=== PATIENT | female | born 1975 | race African-American/Black ===

== ENCOUNTER 2018-01-28 17:15 | Emergency (ER) | payer MEDICAID, SELFPAY ==
[2018-01-28 17:18] VITALS: BP 136/98; PULSE 90; RESP 12; TEMP 36.8; O2SAT 99; BMI 47.2
--- NOTE | 2018-01-28 18:08 | CT_ITS ---
STUDY: CT CERVICAL SPINE WITHOUT CONTRAST REASON FOR EXAM: Female, 42 years old. Laceration to head. Status post fall. RADIATION DOSAGE (If Supplied By Facility): CTDIvol = ( 32.98 ) mGy, DLP = ( 739.19 ) mGycm TECHNIQUE: High resolution transaxial imaging was performed without contrast material. Sagittal and coronal images were reconstructed. Individualized dose optimization techniques were used for this CT. COMPARISON: None FINDINGS: Motion artifact slightly degrades anatomic detail. Normal craniovertebral junction. There are degenerative changes of the anterior atlantoaxial articulation. Normal odontoid process. There is loss of the normal cervical lordosis. The vertebral body heights are preserved. There is facet hypertrophy. C2-3: Normal endplates. Normal disc height and morphology. Normal central canal and intervertebral neuroforamina. C3-4: There is spondylosis. Normal central canal and intervertebral neuroforamina. C4-5: Normal endplates. Normal disc height and morphology. Normal central canal and intervertebral neuroforamina. C5-6: There is spondylosis. Normal central canal and intervertebral neuroforamina. C6-7: There is spondylosis. Normal central canal and intervertebral neuroforamina. C7-T1: Normal endplates. Normal disc height and morphology. Normal central canal and intervertebral neuroforamina. Normal visualized soft tissue structures. CT/Spine Cervical without Contras IMPRESSION: Multilevel degenerative changes, as described above. Electronically Signed: Arpita Harden MD at 19:20 EDT Tel , Service support ,
--- NOTE | 2018-01-28 18:08 | CT_ITS ---
STUDY: CT BRAIN WITHOUT CONTRAST REASON FOR EXAM: Female, 42 years old. Head laceration. RADIATION DOSAGE (If Supplied By Facility): CTDIvol = ( 44.99 ) mGy, DLP = ( 796.11 ) mGycm TECHNIQUE: Transaxial CT imaging of the brain was performed without administration of intravenous contrast material. Individualized dose optimization techniques were used for this CT. COMPARISON: None. FINDINGS: Normal soft tissue structures. Normal calvarium. Normal size ventricles and extra-axial spaces for the patient's age. Normal white matter tracts of the cerebral hemispheres. Normal basal ganglia and thalami. Normal brainstem. Normal cerebellum. There is no intracranial hemorrhage. There are no findings of an acute ischemic infarction. There is near complete opacification of the right maxillary sinus. There is minimal opacification of the left maxillary sinus. CT/Brain/Head without Contrast IMPRESSION: No acute intracranial process. Opacification of the maxillary sinuses consistent with a history of sinusitis. Electronically Signed: Arpita Harden MD at 19:15 EDT Tel , Service support ,
--- NOTE | 2018-01-28 18:08 | EKG12_ITS ---
Test Reason : Blood Pressure : / mmHG Vent. Rate : 090 BPM Atrial Rate : 090 BPM P-R Int : 182 ms QRS Dur : 090 ms QT Int : 360 ms P-R-T Axes : 076 099 058 degrees QTc Int : 440 ms Normal sinus rhythm Nonspecific T wave abnormality Abnormal ECG Confirmed by JYOTHI AMEZQUITA, BRIDGETTE ([id number]), publications editor CHRISTIAN NAIR ([id number] on 02/06/2018 2:58:44 PM Referred By: LUKAS Confirmed By:BRIDGETTE ROE MD
--- NOTE | 2018-01-28 18:08 | RAD_ITS ---
STUDY: X-RAY CHEST REASON FOR EXAM: Female, 42 years old. Fall TECHNIQUE: AP COMPARISON: None. FINDINGS: The lungs are clear and expanded. There is no demonstrated pleural abnormality. Normal size heart. Normal mediastinum and edu. Normal visualized pulmonary arteries. Normal visualized aortic arch and descending thoracic aorta. Normal visualized thoracic spine. Normal visualized ribs, clavicles, and shoulders. There is no demonstrated abnormality of the visualized soft tissue structures of the upper abdomen. RAD/Chest 1 View (Portable) IMPRESSION: No acute cardiopulmonary process. Electronically Signed: Arpita Harden MD at 19:21 EDT Tel , Service support ,
[2018-01-28 18:32] LABS: Absolute Lymphocyte Count 1.98 X10^3/ul (0.83-4.51); Absolute Neutrophil Count 5.1 X10^3/uL (2.0-7.7); Basophil# 0.02 X10^3/uL; Basophil% 0.3 % (0-1); Eosinophil# 0.08 X10^3/uL; Eosinophils% 1.1 % (0-5); Hematocrit 39.5 % (37-47); Lymphocyte # 1.98 X10^3/ul (4.0); Lymphocyte % 26.2 % (19-41); Mean Corp Hgb Conc 32.9 g/gl (32-36); Mean Corpuscular Hgb 28.1 pg (27.0-32.0); Mean Corpuscular Volume 85.5 fL (81-99); Mean Platelet Vol. 9.9 fl (6.2-12.0); Monocyte# 0.39 X10^3/uL; Monocyte% 5.2 % (0-10); Neutrophil # 5.07 X10^3/uL (2.7-7.7); Neutrophil % 66.8 % (47-70); Platelet Count 294 K/mm3 (150-450); RBC Distribution Width CV 17.9 % (11.6-14.6); RBC Distribution Width SD 54.9 fl (35.1-43.9); Red Blood Count 4.62 M/mm3 (4.2-5.4); White Blood Count 7.6 K/mm3 (4.4-11.0)
[2018-01-28 18:35] LABS: POSITIVE COUNT NO; POSITIVE DIFFERENTIAL NO; POSITIVE MORPHOLOGY NO
[2018-01-28 18:51] LABS: Anion Gap 6 (5-15); BUN 10 mg/dL (7-18); BUN/Creat Ratio 9.6 RATIO (10-20); Calcium,Total 8.4 mg/dL (8.5-10.1); Chloride 107 mmol/L (98-107); Creatinine, Serum 1.04 mg/dL (0.55-1.02); EST Glomerular Filtration Rate 61 mL/min (>60); Est Glom Filt Rate - Afr Amer 74 mL/min (>60); Estimated Creatinine Clearance 65.29 ml/min; Glucose 87 mg/dL (74-106); Potassium 3.9 mmol/L (3.5-5.1); Sodium Level 141 mmol/L (136-145)
[2018-01-28] MEDS: Diphth,Pertuss(Acell),Tet Vac 0.5 ML Vial IM (19:08)
[2018-01-28 19:21] LABS: International Normalized Ratio 0.9; Prothrombin Time (Protime)PT. 12.5 SECONDS (11.7-14.9)
[2018-01-28 19:23] VITALS: BP 159/110; PULSE 91; RESP 12; O2SAT 98
[2018-01-28 21:06] VITALS: PULSE 99; RESP 16
--- NOTE | 2018-01-28 21:53 | ED.VISSUMM ---
- ER Visit Summary Date of Service: 01/28/18 Chief Complaint: Fall History of Present Illness: The patient is a 42 F who presents after a fall. She does admit to alcohol intoxication today and drank a large amount of vodka. She does not remember the injury but remembers being told that she had cut her head and that she was bleeding. The other individual with her wanted to take her to the hospital but she refused. Once she got back home her daughter called the police and she was brought here after she was told she really did need an evaluation. She also sustained some abrasions to her left knee but no other injuries. Currently she complains of a headache only. Physical Examination: Afebrile vitals are normal There is a 2 cm laceration above the left eyebrow as well as soft tissue swelling Pupils are equally round reactive to light extraocular motion intact without pain or palsy No midface instability or jaw malocclusion No cervical tenderness Active full range of motion ?4 extremities she has an abrasion over the anterior left knee but no pain on palpation or effusion or deformity Heart regular rate and rhythm Lungs are clear Abdomen soft Test Results: EKG shows sinus rhythm at a rate of 90. Laboratory studies notable for EtOH of 149. Troponin negative. CT the head shows no acute process. CT of the cervical spine shows degenerative changes only. Chest x-ray shows no acute process. Emergency Department Course and Treatment: Tetanus immunization was updated and patient was anesthetized with 5 cc of local lidocaine. A small area of devitalized macerated tissue was debrided. The laceration was cleansed with sterile saline. Laceration was closed with a total of 5 simple interrupted 50 nonabsorbable sutures. Patient has been observed in the emergency department for almost 5 hours. Note that her alcohol level was drawn late in her stay and was a redrawn due to hemolyzed specimen. Currently she is answering all questions appropriately. She is asking if she can be discharged and has called her daughter for a ride home. Treatment Plan: [] Disposition: Discharge Impression: Closed head injury Facial laceration Alcohol intoxication This note was generated with [employer] dictation software. It may contain incorrect words, spelling, and punctuation that were not noted in review of the chart prior to signing ED Disposition - Plan for ED Patient: Chief Complaint: Fall Referrals: Care Physician,No Primary [Primary Care Provider] -
--- NOTE | 2018-01-28 21:56 | ED.DEP ---
ED Disposition - Plan for ED Patient: Chief Complaint: Fall Instructions: ED Laceration Facial Sutr Tape, ED Alcohol Intoxication Referrals: Care Physician,No Primary [Primary Care Provider] -
[2018-01-28 21:59] VITALS: BP 162/110; PULSE 92; RESP 20; O2SAT 96
[2018-01-28] MEDS: Acetaminophen 500 MG Tablet 1000 MG PO (21:59)
== END 2018-01-28 22:03 | disposition home or self-care (01) ==
PROVIDERS: Emergency Provider Emergency Medicine
DX: S01.81XA Laceration without foreign body of other part of head, initial encounter (principal); S80.212A Abrasion, left knee, initial encounter; W19.XXXA Unspecified fall, initial encounter; Y93.9 Activity, unspecified; Y92.9 Unspecified place or not applicable; F10.129 Alcohol abuse with intoxication, unspecified; Y90.6 Blood alcohol level of 120-199 mg/100 ml; I10 Essential (primary) hypertension; Z79.899 Other long term (current) drug therapy
CPT/HCPCS: 12011; 36415; 70450; 71045; 72125; 80048; 80320; 84484; 85025; 85610; 90715; 93005; 99285; A4216; G0480

== ENCOUNTER 2018-03-13 13:00 | Outpatient (RCR) | payer MEDICAID, SELFPAY ==
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
--- NOTE | 2018-07-06 12:32 | HP.PT.NRP ---
HP - Discharge Summary (1) - Patient Information RAIN CASTILLO was seen in my office for initial evaluation on 02/10/18. The following Plan of Care was established for this patient: Initial Frequency: 2-3x /Week Initial Duration: 4-6 Weeks - Anticipated Interventions Patient/Client Instruction: Educate patient on: Condition, Plan of Care, Risk Factors, Benefits of Fitness Program For the Purpose of:: To improve self management Therapeutic Exercise to Include: Strength training, Body mechanics, Postural training, In an aquatic setting, Active ROM, Dynamic Lumbar Stabilization For the Purpose of:: To decrease pain, To increase ROM, To improve muscle performance and motor function, To increase tolerance to activity/condition/position, To improve ability of physical actions for home/community/work/leisure This patient was last seen in our office . Pertinent comments regarding their Physical therapy will appear below: This patient has not returned to Physical Therapy and is appropriate to return to MD for further follow-up as needed. At this point I will be discontinuing this patient from physical therapy. I would be happy to see this patient again in the future if found appropriate by the physician. Thank you! Stacy Gorman
== END 2018-03-13 19:00 | disposition home or self-care (01) ==
LOC: PT 13:00
DX: M54.42 Lumbago with sciatica, left side (principal); M51.36 Other intervertebral disc degeneration, lumbar region
CPT/HCPCS: 97113; 97162; 97530

== ENCOUNTER → 2018-06-16 13:11 | Outpatient (CLI) | payer MEDICAID, SELFPAY ==
--- NOTE | 2018-06-16 13:45 | MRI_ITS ---
STUDY: MRI LUMBAR SPINE WITHOUT CONTRAST REASON FOR EXAM: Female, 43 years old. Radiculopathy with low back pain TECHNIQUE: Standardized fat and water weighted pulse sequences were obtained in the sagittal and axial planes. COMPARISON: None FINDINGS: T12-L1: Normal endplates. Normal disc height, hydration and morphology. Normal bilateral facet joints. Normal central canal and bilateral lateral recesses. Normal bilateral intervertebral neural foramina. Normal lumbar lordosis. There is no substantial scoliosis. Normal conus medullaris that terminates at T12-L1 L1-2: Normal endplates. Normal disc height, hydration and morphology. Normal bilateral facet joints. Normal central canal and bilateral lateral recesses. Normal bilateral intervertebral neural foramina. L2-3: Normal endplates. Normal disc height, hydration and morphology. Normal bilateral facet joints. Normal central canal and bilateral lateral recesses. Normal bilateral intervertebral neural foramina. L3-4: Normal endplates. Normal disc height, hydration and morphology. Mild facet arthropathy.. Normal central canal. Minor bilateral recess and neuroforaminal encroachment L4-5: Grade 1 retrolisthesis Degenerative endplate changes.. Normal disc height, desiccation and minor bulging disc osteophyte complex. Bilateral facet arthropathy greater on the right.. Normal central canal. Moderate left lateral recess and neural foraminal stenosis with more severe narrowing on the right L5-S1: Grade 1 spondylolisthesis and spondylolysis. Normal endplates. Normal disc height, desiccation and mild bulging disc osteophyte complex. Bilateral facet arthropathy.. Normal central canal. Severe bilateral recess and neural foraminal stenosis exaggerated by shortened pedicles. Normal visualized sacral ala. Normal visualized paraspinous soft tissue structures. MRI/Spine Lumbar (Routine) IMPRESSION: Multilevel spinal stenosis secondary to disc disease and bony hypertrophy most severe at L5-S1 exaggerated by shortened pedicles due to spondylolisthesis deformity Electronically Signed: Chevy Johnson MD at 22:17 EDT , Service support ,
== END ==
PROVIDERS: Referring Provider Nurse Practitioner Family; Visit Provider Nurse Practitioner Family
DX: M46.96 Unspecified inflammatory spondylopathy, lumbar region (principal); M54.17 Radiculopathy, lumbosacral region; M47.817 Spondylosis without myelopathy or radiculopathy, lumbosacral region; M48.07 Spinal stenosis, lumbosacral region
CPT/HCPCS: 72148

== ENCOUNTER 2018-10-11 10:18 | Outpatient (RCR) | payer MEDICAID, SELFPAY ==
--- NOTE | 2018-10-12 11:07 | HP.FCE ---
HP OT Functional Capacity Eval - Task Lift Floor (Occasional 1-33% of Day): 15lb Floor (Frequent 34-66% of Day): 8lb Floor (Constant 67-100% of Day): negligible Floor PDL: Sedentary-Light Knee (Occasional 1-33% of Day): 15lb Knee (Frequent 34-66% of Day): 8lb Knee (Constant 67-100% of Day): negligible Knee PDL: Sedentary-Light Waist (Occasional 1-33% of Day): 15lb Waist (Frequent 34-66% of Day): 8lb Waist (Constant 67-100% of Day): negligible Waist PDL: Sedentary-Light Shoulder (Occasional 1-33% of Day): 15lb Shoulder (Frequent 34-66% of Day): 8lb Shoulder (Constant 67-100% of Day): negligible Shoulder PDL: Sedentary-Light Overhead (Occasional 1-33% of Day): 7lb Overhead (Frequent 34-66% of Day): negligible Overhead (Constant 67-100% of Day): negligible Overhead PDL: Sedentary - Work Activity/Posture Bending: Occasional Ability (1-33% of day) Squatting: Occasional Ability (1-33% of day) Kneeling: Occasional Ability (1-33% of day) Reaching out: Frequent Ability (34-66% of day) Reaching up: Frequent Ability (34-66% of day) Sitting: Constant Ability (67-100% of day) Walking: Occasional Ability (1-33% of day) Standing: Occasional Ability (1-33% of day) - Reference Duration Sedentary Sedentary Light Light Light Medium Medium Medium Heavy Very Heavy Heavy Occasional (0-33% of day) Frequent (34-66% of day) Constant (67-100% of day) 10 # Negligible Negligible 15 # 8 # Negligible 20 # 10# Negli. 35 # 18 # 7 # 50 # 25 # 10 # 75 # 100 # >100 # 38 # 50 # >50 # 15 # 20 # >20 # - Patient Information Height: 5 ft 7 in Weight:: 113.398 kg Hand Dominance: Right - Medical History Medical History Including Restrictions: Pt reports the following PMHx: high blood pressure, border line DM, sleep apnea, Bipap machine for at night, hiatal hernia, arthritis, DJD, emphysema, acid reflex. Pt did not have list of PMHx available with her. - Diagnoses Diagnoses: Pt reports the following PMHx: high blood pressure, border line DM, sleep apnea, Bipap machine for at night, hiatal hernia, arthritis, DJD, emphysema, acid reflex - Symptoms Symptoms: Pt reports symptoms include: severe pain down R leg and lower back, stabbing pain in back. 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 Pt has 4 steps to enter 1 handrail. Flight of steps to bedroom with 1 handrail. Independent with AMB no AD available. Bathroom setup includes; Tub/shower, HHS, std toilet seats. Daughter assist with grooming tasks of brushing her hair and shaving legs. Daughter assist with all IADLs. Pt able to complete simple meal prep on her own. Pt does go out in community and able to assist wtih getting groceries but unable to walk distance of store uses power scooter. Pt states she has actually sat on floor of store when she couldn't walk anymore and waited for her daughter to go and get a power scooter for her. Daughter carries in groceries and puts groceries away. Pt drives short distances in town. No pets. - Physical Examination ROM: BUE WFL all planes, BLE WFL all planes Strength: BUE 3+/5, BLE 3+/5 Right Clinical Research Physician Strength Average: 18.33 Left Clinical Research Physician Strength Average: 16.66 Right Lateral Pinch Average: 5.00 Left Lateral Pinch Average: 2.33 Right Tripod Pinch Average: 1.66 Left Tripod Pinch Average: 1.33 Sensation: L hand tingling that comes and goes. Ulnar nerve side Fine Motor: Can't write a letter, R hand will cramp up. Daughter has to assist with combing hair because R hand will start to cramp up. Completed 9 hole peg test R (dominent)= 24.2 seconds L= 29 seconds. Balance: Pt reports no falls in past three months. Pt states no balance concerns. - Non Material Handling Activities Bending: Pt able to bend down not all the way to floor ~5 inches between floor and pts hand able to complete 3 bends down with extra time needed, slow moving, pt stated 9/10 pain lower back to complete task. Squatting: Pt completed 3 squats plus 3 more squats (unable to complete all 10 or 10 fast) slow moving extra time needed unable to complete full squats, using bilateral arm support to complete squats. Pt declined to particpate with more squats stating unable to complete anymore due to back pain. Kneeling: Pt completed kneels 3x, 6x not full complete kneel onto L leg using bilateral hand support to complete modified kneels. Pt declined to complete more kneels. Reaching out/up: Reaching up 3x, 10x, 5x fast (pt unable to complete 5 more at fast pace). Pt states feels like she has trey horse R arm after completing, required rest break before starting other reaching tests. Reaching up. Reaching out R/L side 3x, 10x, 10x fast while standing. Walking: Pt completed 2 min of 15 min walk test, had to sit down after walking 2 minutes at a slow pace, pt states limited from back pain and breathing. Pt stated limited with walking more from back pain than breathing. Standing: Pt able to stand short amounts of time 1 to 2 minutes at a time then needs to sit for SOB and back pain. Sitting: Pt able to sit 28 minutes in beginning of evaluation. As evaluation continued pt moving around in chair for increased comfort. Climbing Stairs: Pt able to climb up/down flight of 10 steps slow moving extra time needed holding bilateral handrails - Dynamic Occasional Lifting Capacity Floor Lift: 15lb max Knee Lift: 15lb max Waist Lift: 15lb max Shoulder Lift: 15lb max Overhead Lift: 7lb max Carryinlb max Comments: 10/10 lower back and R leg pain after lifting tasks per pt.
== END 2018-10-11 19:00 | disposition home or self-care (01) ==
LOC: OT 10:18
DX: M54.41 Lumbago with sciatica, right side (principal)
CPT/HCPCS: 97165; 97167

== ENCOUNTER → 2018-10-31 13:25 | Outpatient (CLI) | payer MEDICAID, SELFPAY ==
--- NOTE | 2018-10-31 13:28 | RAD_ITS ---
STUDY: X-RAY - LUMBOSACRAL SPINE REASON FOR EXAM: Female, 43 years old. Chronic low back pain TECHNIQUE: 6 view(s) of the lumbosacral spine were obtained. Including flexion and extension views COMPARISON: None FINDINGS: Normal lumbar lordosis. There is no substantial scoliosis. Grade 2/3 anterolisthesis of L5 on S1 with bilateral chronic pars defects. No increased translation with flexion or extension. Endplate degenerative changes at L3-4, L4-5 and L5-S1. Moderate disc space height loss at L4-5 and L5-S1. Normal bilateral sacral ala, sacroiliac joints, and visualized sacrum. Normal visualized soft tissue structures. RAD/L/S Spine Comp/w Bending Views IMPRESSION: Grade 2/3 anterolisthesis of L5 on S1 with bilateral chronic pars defects. Otherwise, degenerative changes. Electronically Signed: Antelmo Acuña DO at 8:27 EST Tel , Service support ,
== END ==
PROVIDERS: Referring Provider Orthopaedic Surgery; Visit Provider Orthopaedic Surgery
DX: M54.5 Low back pain (principal)
CPT/HCPCS: 72114

== ENCOUNTER 2018-12-10 17:24 | Emergency (ER) | payer MEDICAID, SELFPAY ==
[2018-12-10 17:25] VITALS: BP 171/110; PULSE 91; RESP 18; TEMP 37.1; O2SAT 94; BMI 45.6
[2018-12-10 18:10] VITALS: PULSE 84; RESP 22; O2SAT 94; O2SAT 95
[2018-12-10 18:34] VITALS: RESP 22; O2SAT 93
--- NOTE | 2018-12-10 18:55 | EKG12_ITS ---
Test Reason : SOB Blood Pressure : / mmHG Vent. Rate : 085 BPM Atrial Rate : 085 BPM P-R Int : 160 ms QRS Dur : 082 ms QT Int : 382 ms P-R-T Axes : 080 078 075 degrees QTc Int : 454 ms Normal sinus rhythm Nonspecific T wave abnormality Abnormal ECG Confirmed by RHETT AMEZQUITA, JANINA ([id number]), video effects editor FERNANDO SARKAR ([id number]) on 12/13/2018 1:38:10 PM Referred By: ANDREA Confirmed By:JANINA DELANEY MD
--- NOTE | 2018-12-10 18:56 | ED.VIS.GEN ---
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 chest tightness. Current Severity: Moderate Maximum Severity: Moderate Worsened by: exertion, coughing. Relieved by: rest but meds not helping; using tessalon, robitussin, albuterol MDI. Associated Symptoms: malaise. feel ill. RAINES, bronchospasm. no myalgias. Narrative: Saw her doctor and had some prescriptions for her symptoms but is getting no help. Feels chest tightness, dyspnea when she exerts herself. No earache or sore throat. No fevers. Had a flu vaccine this year. No history of asthma, COPD, or other lung or heart problems. Prior similar symptoms: Yes Past Medical History - Allergies and Home Meds Allergies/Adverse Reactions: Allergies gabapentin Allergy (Verified 12/10/18 17:26) Other lisinopril Allergy (Verified 12/10/18 17:26) Angioedema meperidine HCl [From Demerol] Allergy (Verified 12/10/18 17:26) Swelling pregabalin [From Lyrica] Allergy (Verified 12/10/18 17:26) Other promethazine HCl [From Phenergan] Allergy (Verified 12/10/18 17:26) Swelling tramadol HCl [From Ultram] Allergy (Verified 12/10/18 17:26) Hives Primary Care Physician: Rusty Rivas,Out of [Primary Care Provider] - Smoking Status: Never smoker Drugs: None Review of Systems General: Reports: Chills, Malaise, Subjective. Denies: Fever Eyes: Denies: Visual changes - bilaterally, Diplopia ENT: Reports: Rhinorrhea - and nasal congestion. Denies: Bilateral ear pain, Sore throat Cardiovascular: Reports: Chest pain. Denies: Palpitations Respiratory: Reports: Dyspnea, Cough, Dyspnea on exertion. Denies: Sputum, Orthopnea Gastrointestinal: Denies: Abdominal pain, Nausea, Vomiting, Diarrhea, Melena, Hematochezia Musculoskeletal: Denies: Myalgias, Neck pain, Back pain, Swelling, Extremity Pain Skin: Denies: Rash, Wounds Neurological: Reports: Headache - off and on. Denies: Weakness, Numbness Physical Exam Vital Signs/Narrative: Vital Signs Temp Pulse Resp BP Pulse Ox 12/10/18 18:34 22 H 93 12/10/18 18:10 84 22 H 94 12/10/18 17:25 98.7 F 91 18 171/110 H 94 Inital Vital Signs reviewed: Yes General: Well nourished, Well developed, No Acute Distress Head: Normocephalic, Atraumatic Eyes: Perrl, EOMI ENT: Moist mucous membranes, No rhinorrhea, TM's clear, Nasal congestion - w/o purulent discharge or significant nasal turbinate edema. Negative for: Sinus tenderness Neck: Supple, Nontender Cardiovascular: Regular rate, Regular rhythm, No murmurs Respiratory: No distress, CTA bilaterally, Chest tenderness - ribs on sides/flanks, not anteriorly, - - prolonged expiratory phase Abdomen: Soft, Nontender, Nondistended, Normal bowel sounds Back: Nontender, Normal Inspection Extremities: Nontender, No edema. Negative for: Calf Tenderness Skin: Normal color, No rash Neurological: Alert, Oriented x3, Cranial nerves II-XII grossly intact, Normal Strength, Normal Sensation Psychological: Normal affect, Normal Mood Diagnostic/Tx/Re-eval Impressions Chest X-Ray 12/10/18 19:30 IMPRESSION: No radiographic evidence of acute cardiopulmonary disease. at 2010 Reported and signed by: Baltazar Oseguera MD Electronically Signed: Baltazar Oseguera, at 20:09 EDT Tel , Service support , 12/10/18 19:30 Chest PA and Lateral [RAD] Stat 12/10/18 19:05 Mucosa - Nose Influenza Types A,B Direct FA ([facility]) - Final -- NEGATIVE - Medical Decision Making Chest x-ray and flu swab are negative. She states an albuterol aerosol did not help at all. She is conversive in full sentences and appears relatively well. She is hypertensive 170s-180s. She has been taking a lot of decongestants lately. We discussed that this could be causing her blood pressure to be high despite taking her blood pressure medication. We discussed taking Coricidin HBP instead. She wants another cough syrup and I stated I do not think she needs to be prescribed another one right now especially since her blood pressure is high. She wants an antibiotic, and happy to try one. We will try to cover for atypicals, given a dose of Levaquin here and a prescription for more and advised to follow-up with her doctor, also discussed that viral bronchitis is in the differential diagnosis and is very prevalent in the community recently. ED Disposition - Plan for ED Patient: Disposition: Home or Assisted Living Diagnosis: Acute bronchitis with bronchospasm, Episode of hypertension Instructions: ED Upper Resp Infec Abx Tx Prescriptions: levoFLOXacin tablet [Levaquin] 500 mg PO DAILY #7 tablet Referrals: [facility] Doctor,Out of [Primary Care Provider] - 1 Week if not improving Additional Instructions: Avoid taking Robitussin and take Coricidin HBP instead for your cough. May continue taking the Tessalon as needed, and the albuterol if needed.
--- NOTE | 2018-12-10 19:00 | ED.DCSUM_ITS ---
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 chest tightness. Current Severity: Moderate Maximum Severity: Moderate Worsened by: exertion, coughing. Relieved by: rest but meds not helping; using tessalon, robitussin, albuterol MDI. Associated Symptoms: malaise. feel ill. RAINES, bronchospasm. no myalgias. Narrative: Saw her doctor and had some prescriptions for her symptoms but is getting no help. Feels chest tightness, dyspnea when she exerts herself. No earache or sore throat. No fevers. Had a flu vaccine this year. No history of asthma, COPD, or other lung or heart problems. Prior similar symptoms: Yes Past Medical History - Allergies and Home Meds Allergies/Adverse Reactions: Allergies gabapentin Allergy (Verified 12/10/18 17:26) Other lisinopril Allergy (Verified 12/10/18 17:26) Angioedema meperidine HCl [From Demerol] Allergy (Verified 12/10/18 17:26) Swelling pregabalin [From Lyrica] Allergy (Verified 12/10/18 17:26) Other promethazine HCl [From Phenergan] Allergy (Verified 12/10/18 17:26) Swelling tramadol HCl [From Ultram] Allergy (Verified 12/10/18 17:26) Hives Primary Care Physician: Rusty Rivas,Out of [Primary Care Provider] - Smoking Status: Never smoker Drugs: None Review of Systems General: Reports: Chills, Malaise, Subjective. Denies: Fever Eyes: Denies: Visual changes - bilaterally, Diplopia ENT: Reports: Rhinorrhea - and nasal congestion. Denies: Bilateral ear pain, Sore throat Cardiovascular: Reports: Chest pain. Denies: Palpitations Respiratory: Reports: Dyspnea, Cough, Dyspnea on exertion. Denies: Sputum, Orthopnea Gastrointestinal: Denies: Abdominal pain, Nausea, Vomiting, Diarrhea, Melena, Hematochezia Musculoskeletal: Denies: Myalgias, Neck pain, Back pain, Swelling, Extremity Pain Skin: Denies: Rash, Wounds Neurological: Reports: Headache - off and on. Denies: Weakness, Numbness Physical Exam Vital Signs/Narrative: Vital Signs Temp Pulse Resp BP Pulse Ox 12/10/18 18:34 22 H 93 12/10/18 18:10 84 22 H 94 12/10/18 17:25 98.7 F 91 18 171/110 H 94 Inital Vital Signs reviewed: Yes General: Well nourished, Well developed, No Acute Distress Head: Normocephalic, Atraumatic Eyes: Perrl, EOMI ENT: Moist mucous membranes, No rhinorrhea, TM's clear, Nasal congestion - w/o purulent discharge or significant nasal turbinate edema. Negative for: Sinus tenderness Neck: Supple, Nontender Cardiovascular: Regular rate, Regular rhythm, No murmurs Respiratory: No distress, CTA bilaterally, Chest tenderness - ribs on sides/flanks, not anteriorly, - - prolonged expiratory phase Abdomen: Soft, Nontender, Nondistended, Normal bowel sounds Back: Nontender, Normal Inspection Extremities: Nontender, No edema. Negative for: Calf Tenderness Skin: Normal color, No rash Neurological: Alert, Oriented x3, Cranial nerves II-XII grossly intact, Normal Strength, Normal Sensation Psychological: Normal affect, Normal Mood Diagnostic/Tx/Re-eval Impressions Chest X-Ray 12/10/18 19:30 IMPRESSION: No radiographic evidence of acute cardiopulmonary disease. at 2010 Reported and signed by: Baltazar Oseguera MD Electronically Signed: Baltazar Oseguera, at 20:09 EDT Tel , Service support , 12/10/18 19:30 Chest PA and Lateral [RAD] Stat 12/10/18 19:05 Mucosa - Nose Influenza Types A,B Direct FA ([facility]) - Final -- NEGATIVE - Medical Decision Making Chest x-ray and flu swab are negative. She states an albuterol aerosol did not help at all. She is conversive in full sentences and appears relatively well. She is hypertensive 170s-180s. She has been taking a lot of decongestants lately. We discussed that this could be causing her blood pressure to be high despite taking her blood pressure medication. We discussed taking Coricidin HBP instead. She wants another cough syrup and I stated I do not think she needs to be prescribed another one right now especially since her blood pressure is high. She wants an antibiotic, and happy to try one. We will try to cover for atypicals, given a dose of Levaquin here and a prescription for more and advised to follow-up with her doctor, also discussed that viral bronchitis is in the differential diagnosis and is very prevalent in the community recently. ED Disposition - Plan for ED Patient: Disposition: Home or Assisted Living Diagnosis: Acute bronchitis with bronchospasm, Episode of hypertension Instructions: ED Upper Resp Infec Abx Tx Prescriptions: levoFLOXacin tablet [Levaquin] 500 mg PO DAILY #7 tablet Referrals: [facility] Doctor,Out of [Primary Care Provider] - 1 Week if not improving Additional Instructions: Avoid taking Robitussin and take Coricidin HBP instead for your cough. May continue taking the Tessalon as needed, and the albuterol if needed.
[2018-12-10 19:08] VITALS: PULSE 88; RESP 16
[2018-12-10] MEDS: Albuterol 2.5 MG/3 ML VIAL.NEB. INHALATION (19:08)
--- NOTE | 2018-12-10 19:30 | RAD_ITS ---
HISTORY: COUGH, FEVER, WEAKNESS x1 WEEK EXAM: XR Chest 2 Views: COMPARISON: 01/28/18 CXR FINDINGS: LINES/DEVICES: None. LUNGS: Radiographically clear. No consolidation, edema or effusion. No pneumothorax. MEDIASTINUM AND CARDIOVASCULAR STRUCTURES: Cardiac silhouette not enlarged. Central airways and mediastinal contour are unremarkable. BONES AND SOFT TISSUES: Unremarkable. RAD/Chest PA and Lateral IMPRESSION: No radiographic evidence of acute cardiopulmonary disease. at 2010 Reported and signed by: Baltazar Oseguera MD Electronically Signed: Baltazar Oseguera, at 20:09 EDT Tel , Service support ,
[2018-12-10 20:56] VITALS: BP 189/128; PULSE 81; RESP 22; O2SAT 90
[2018-12-10] MEDS: levoFLOXacin 500 MG Tablet PO (21:11)
--- NOTE | 2018-12-10 21:13 | ED.RN ---
DISCHARGE INSTRUCTIONS GIVEN TO AND REVIEWED WITH PATIENT, PATIENT DENIES QUESTIONS OR CONCERNS AND VOICES UNDERSTANDING OF DISCHARGE INSTRUCTIONS. PT AMBULATES OUT OF ROOM WITHOUT ISSUE.
== END 2018-12-10 21:14 | disposition home or self-care (01) ==
PROVIDERS: Emergency Provider Emergency Medicine
DX: J20.9 Acute bronchitis, unspecified (principal); I10 Essential (primary) hypertension
CPT/HCPCS: 71046; 87804; 93005; 94640; 99283

== ENCOUNTER 2019-06-07 10:32 | Emergency (ER) | payer MEDICAID, SELFPAY ==
[2019-06-07 10:33] VITALS: BP 167/112; PULSE 92; RESP 17; TEMP 36.7; O2SAT 95; BMI 47.5
--- NOTE | 2019-06-07 10:59 | ED.DCSUM_ITS ---
- ER Visit Summary Date of Service: 06/07/19 Chief Complaint: [Back pain] History of Present Illness: The patient is a 44 F [presents to the emergency department with complaint of back pain that started yesterday but she has had chronic ongoing issues with it. Patient rates her pain currently as a 10 out of 10. Patient states that she took some Flexeril and Naprosyn yesterday but then overnight the pain became significantly worse. Patient describes pain is in her right lower back that radiates down her right leg. She denies any numbness, tingling, or weakness. She denies any change in bowel or bladder function. Patient has had pain that radiated down her leg like this in the past. Any fevers or recent illness. Patient does have history of hypertension. She does not have any primary care physician currently that she follows up with. Patient denies any trauma to her back. Patient had x-rays of her low back in September of this year that showed some chronic degenerative changes spondylolisthesis at L5-S1.] Physical Examination: [HEENT-PERRLA, EOMI. Cranial nerves II through XII grossly intact. TMs clear. Mucous membranes moist. No adenopathy. Cardiovascular-regular rate and rhythm without murmur or ectopy Lungs-clear to auscultation, chest wall stable without crepitus or subcu emphysema Abdomen-normoactive bowel sounds, soft, nontender, no rebound or rigidity, no peritoneal signs. Back exam-patient has tenderness diffusely over the right lumbar paraspinal musculature into the right buttock and piriformis muscle. Patient has positive straight leg raise with pain at about 45 degrees while sitting. Deep tendon reflexes are plus 1 out of 4 bilaterally at the patella and Achilles. Patient has normal L5 extension. Patient has normal sensation to light touch. Extremities-intact ?4, normal range of motion, normal pulses, atraumatic] Test Results: [None indicated. Patient has no signs of cauda equina.] Emergency Department Course and Treatment: [She was medicated with Dilaudid 1 mg IM.] Treatment Plan: [Patient will be referred to primary care physician as well as orthopedics for follow-up. Patient will be given a prescription for Naprosyn, Flexeril, and [place] for severe pain.] Disposition: [Discharged home in stable condition] Impression: [Sciatica] This note was generated with Dragon dictation software. It may contain incorrect words, spelling, and punctuation that were not noted in review of the chart prior to signing ED Disposition - Plan for ED Patient: Referrals: Care Physician,No Primary [Primary Care Provider] -
--- NOTE | 2019-06-07 11:02 | DCINST.ED_ITS ---
ED Disposition - Plan for ED Patient: Instructions: BACK PAIN w/ SCIATICA Prescriptions: cycloBENZAPRine HCl [Flexeril] 10 mg PO TID PRN #20 tab PRN Reason: Muscle Spasm Prescription Printed Naproxen [Naprosyn] 500 mg PO BID PRN #20 tab Prescription Printed Hydrocodone Bitart/Apap 5-325 [[place] 5MG-325MG] 1 tab PO Q4H PRN PRN 2 Days #20 tab PRN Reason: Pain Prescription Printed Referrals: Care Physician,No Primary [Primary Care Provider] - Vijay Altamirano MD [STAFF PHYSICIAN] - 3-5 Days Andre Vargas DO [STAFF PHYSICIAN] - 3-5 Days
[2019-06-07] MEDS: HYDROmorphone 1 MG/ML Syringe IM (11:32)
== END 2019-06-07 13:00 | disposition home or self-care (01) ==
LOC: ED 11:14
PROVIDERS: Emergency Provider Emergency Medicine
DX: M54.30 Sciatica, unspecified side (principal); M43.17 Spondylolisthesis, lumbosacral region; I10 Essential (primary) hypertension; Z72.0 Tobacco use
CPT/HCPCS: 96372; 99283

== ENCOUNTER 2019-08-13 14:54 | Emergency (ER) | payer MEDICAID, SELFPAY ==
[2019-08-13 14:56] VITALS: BP 162/119; PULSE 91; RESP 18; TEMP 36.1; O2SAT 100; BMI 47.0
--- NOTE | 2019-08-13 16:28 | ED.DCSUM_ITS ---
- ER Visit Summary Date of Service: 08/13/19 Chief Complaint: Sciatica History of Present Illness: The patient is a 44 F with right-sided sciatica. Symptoms started this morning. She tried a muscle relaxer, but it did not help. She denies any new symptoms. Denies trauma. Denies fever. Denies back surg preet. Denies or GI symptoms. Physical Examination: Afebrile and vital signs unremarkable except blood pressure 162/119. Alert and oriented. Uncomfortable. Laying on her left side. Right lower backend java developer to palpation. Good strength and sensation. Abdomen soft. Skin normal. Test Results: None indicated Emergency Department Course and Treatment: Patient presents with symptoms concerning for sciatica. History of the same. No new or red flag features. She was treated with Norflex and Toradol. Will reassess. On reevaluation, patient had no improvement. She was treated with Dilaudid 1 mg. On further reevaluation, patient was feeling better and requesting discharge. Treatment Plan: As above Disposition: Discharge Impression: 1. Right side sciatica This note was generated with [facility] [employer] dictation software. It may contain incorrect words, spelling, and punctuation that were not noted in review of the chart prior to signing ED Disposition - Plan for ED Patient: Referrals: Elizabeth Talamantes MD [Primary Care Provider] -
[2019-08-13] MEDS: Orphenadrine 60 MG/2 ML Ampul IM (16:37)
[2019-08-13] MEDS: Ketorolac 60 MG/2 ML Vial IM (16:40)
[2019-08-13] MEDS: HYDROmorphone 1 MG/ML Syringe SC (17:40)
--- NOTE | 2019-08-13 18:18 | ED.DEP ---
ED Disposition - Plan for ED Patient: Instructions: BACK PAIN w/ SCIATICA Referrals: Elizabeth Talamantes MD [Primary Care Provider] -
[2019-08-13 18:31] VITALS: BP 167/121; PULSE 91; RESP 18; O2SAT 95
== END 2019-08-13 18:33 | disposition home or self-care (01) ==
PROVIDERS: Emergency Provider Emergency Medicine; Family Provider Family Medicine Sports Medicine; PCP Family Medicine Sports Medicine
DX: M54.41 Lumbago with sciatica, right side (principal); I10 Essential (primary) hypertension; F17.200 Nicotine dependence, unspecified, uncomplicated; Z79.899 Other long term (current) drug therapy
CPT/HCPCS: 96372; 99282

== ENCOUNTER 2019-10-08 14:19 | Emergency (ER) | payer MEDICAID, SELFPAY ==
[2019-10-08 14:20] VITALS: BP 176/119; PULSE 99; RESP 20; TEMP 36.7; O2SAT 95; BMI 49.1
--- NOTE | 2019-10-08 15:58 | ED.VIS.BACK ---
History of Present Illness Chief Complaint: Back Informant: Patient Onset: Today Context: Sudden Onset Chronic pain exacerbated by: slipping on ice Injury: Twisting - when slipped on ice outside Timing: Continuous Quality: Aching Location: Lumbar, Buttock, Right Leg - to distal thigh, not below Current Severity: Severe Maximum Severity: Severe Worsened by: improves with: Movement Relieved by: Remaining Still Associated Symptoms: - - Radiation to right thigh but not below the knee. Barely able to ambulate. No urinary or bowel incontinence/retention. No numbness or tingling to the groin or lower extremities. No abdominal pain. No weakness but difficult to tell because it hurts so much to move her right lower extremity. Narrative: Patient concurs this is the same pain but much worse since she accidentally slipped on ice today. She states her daughter was with her, who confirms that she did not fall and injure anything else. She basically twisted about the back and caught herself. She is scheduled to see a specialist for possible surgery for a disc problem. She confirms that this feels like her worsening pain of the same pain or at least in the same area. Prior similar symptoms: Yes, With Prior Back Pain - Past Medical History (1) Chronic low back pain with right-sided sciatica Status: Chronic Past Medical History - Allergies and Home Meds Allergies/Adverse Reactions: Allergies gabapentin Allergy (Verified 10/08/19 14:20) Other lisinopril Allergy (Verified 10/08/19 14:20) Angioedema meperidine HCl [From Demerol] Allergy (Verified 10/08/19 14:20) Swelling pregabalin [From Lyrica] Allergy (Verified 10/08/19 14:20) Other promethazine HCl [From Phenergan] Allergy (Verified 10/08/19 14:20) Swelling tramadol HCl [From Ultram] Allergy (Verified 10/08/19 14:20) Hives Primary Care Physician: surgeon, your [Other] (as scheduled) Doctors: myla - bill Lives: With Family Smoking Status: Current every day smoker Review of Systems General: Denies: Chills, Fever, Sweats Gastrointestinal: Reports: - - No bowel or bladder dysfunction. Denies: Abdominal pain, Vomiting Genitourinary: Denies: Dysuria, Hematuria Musculoskeletal: Reports: Back pain, Extremity Pain. Denies: Neck pain, Swelling Skin: Denies: Rash, Wounds Neurological: Denies: Headache, Weakness, Numbness Physical Exam Vital Signs/Narrative: Vital Signs Temp Pulse Resp BP Pulse Ox 10/08/19 14:20 98.0 F 99 20 H 176/119 H 95 Inital Vital Signs reviewed: Yes General: Well nourished, Well developed, Obese, - - In mild painful distress, lying still left lateral decubitus Head: Normocephalic, Atraumatic Abdomen: Soft, Nontender, Nondistended, Normal bowel sounds Back: Paraspinal Tenderness - Right lumbosacral and buttock diffuse, Negative SLR - Right - No radicular symptoms below the knee, only exacerbates her low back pain, Negative SLR - Left. Negative for: Spinal tenderness, CVA tenderness Extremeties: Nontender, No edema Skin: Normal color, No rash, No Trauma Neuro: Alert, Oriented, Normal Strength, Normal Sensation, Normal DTR - No clonus bilaterally. Negative for: Normal Gait - Antalgic Psychological: Normal affect, Normal Mood Diagnostic/Tx/Re-eval - Medical Decision Making Patient is feeling better after she was medicated with intramuscular Dilaudid and Toradol. She has a ride home. Will follow-up. ED Disposition - Plan for ED Patient: Disposition: Home or Assisted Living Diagnosis: Acute exacerbation of chronic low back pain, Fall from slipping on ice Instructions: BACK PAIN (Acute or Chronic) Referrals: surgeon, your [Other] (as scheduled)
[2019-10-08 16:34] VITALS: BP 168/105; PULSE 90; RESP 15; O2SAT 96
[2019-10-08] MEDS: HYDROmorphone 1 MG/ML Syringe 2 MG IM (16:35)
[2019-10-08] MEDS: Ketorolac 60 MG/2 ML Vial IM (16:35)
[2019-10-08] MEDS: Ondansetron ODT 4 MG Tablet 8 MG PO (16:35)
[2019-10-08 17:51] VITALS: BP 162/101; PULSE 92; RESP 18; O2SAT 91
== END 2019-10-08 17:51 | disposition home or self-care (01) ==
PROVIDERS: Emergency Provider Emergency Medicine
DX: M54.5 Low back pain (principal); G89.29 Other chronic pain; W00.0XXA Fall on same level due to ice and snow, initial encounter; F17.200 Nicotine dependence, unspecified, uncomplicated; E66.9 Obesity, unspecified; Z68.42 Body mass index [BMI] 45.0-49.9, adult
CPT/HCPCS: 96372; 99282

== ENCOUNTER 2019-12-03 13:34 | Emergency (ER) | payer MEDICAID, SELFPAY ==
[2019-12-03 13:35] VITALS: BP 144/74; PULSE 99; RESP 18; TEMP 36.6; O2SAT 97; BMI 38.4
--- NOTE | 2019-12-03 13:59 | ED.VIS.FALL ---
History of Present Illness Chief Complaint: Fall Informant: Patient Occurred: Yesterday Mechanism/Context: Slip - on wet floor while walking in socks at her home Fall down steps #: no Location: left hip Quality of Pain: Aching Current Severity: Severe Maximum Severity: Severe Worsened by: moving LLE, trying to weight-bear Relieved by: remaining still Associated Symptoms: Loss of function, Inability to ambulate. Negative for: Parasthesias, Weakness, Loss of consciousness, Amnesia Narrative: Patient was having sciatica pain in her left lower extremity prior to this fall, that is worse now. However the injury was to her left hip, not her low back/tailbone. She has a history of sciatica on the side. She denies any other injury including her head or left shoulder. - Past Medical History (1) Hiatal hernia Status: Chronic (2) Hypertension Status: Chronic Past Medical History - Allergies and Home Meds Allergies/Adverse Reactions: Allergies gabapentin Allergy (Verified 12/03/19 13:36) Other lisinopril Allergy (Verified 12/03/19 13:36) Angioedema meperidine HCl [From Demerol] Allergy (Verified 12/03/19 13:36) Swelling pregabalin [From Lyrica] Allergy (Verified 12/03/19 13:36) Other promethazine HCl [From Phenergan] Allergy (Verified 12/03/19 13:36) Swelling tramadol HCl [From Ultram] Allergy (Verified 12/03/19 13:36) Hives Primary Care Physician: Care Physician,No Primary [Primary Care Provider] - Lives: Spouse/ Significant Other Smoking Status: Current every day smoker Review of Systems General: Denies: Chills, Fever, Sweats Eyes: Denies: Visual changes - bilaterally, Diplopia ENT: Denies: Rhinorrhea, Sore throat Cardiovascular: Denies: Chest pain, Palpitations Respiratory: Denies: Dyspnea, Cough, Dyspnea on exertion Gastrointestinal: Denies: Abdominal pain, Nausea, Vomiting, Diarrhea, Melena, Hematochezia Genitourinary: Denies: Dysuria, Hematuria, Frequency Musculoskeletal: Reports: Extremity Pain. Denies: Neck pain, Back pain Skin: Denies: Rash, Wounds Neurological: Denies: Headache, Weakness, Numbness Physical Exam Vital Signs/Narrative: Vital Signs Temp Pulse Resp BP Pulse Ox 12/03/19 13:35 97.8 F 99 18 144/74 H 97 Inital Vital Signs reviewed: Yes General: Well nourished, Well developed, Obese, - - tearful, in painful distress Head: Normocephalic, Atraumatic Eyes: Perrl, EOMI ENT: No trauma Neck: Nontender, Full ROM Respiratory: No distress Back: Nontender Extremeties: Very limited range of motion left lower extremity due to pain. There is tenderness at the greater trochanter and at the ASIS, but the pelvis is stable. Significant pain in the hip even with moving her foot internal/external rotation. No tenderness distal to the hip, including the knee and ankle. Neurovascularly intact distally. Skin: Normal color, No rash, No Trauma Neurological: Alert, Oriented x3, Cranial nerves II-XII grossly intact, Normal Strength, Normal Sensation Psychological: Normal affect, Tearful Diagnostic/Tx/Re-eval Clinical Impression(s) from Imaging Studies Hip/Pelvis X-Ray 12/03/19 14:25 IMPRESSION: Normal x-ray examination of the pelvis and hip. Electronically Signed: Benjamin Uribe at 14:55 EDT , Service support , Lower Extremity MRI 12/03/19 14:52 IMPRESSION: Acute avulsion of the hamstring origins from the ischium. Electronically Signed: Damon Gaspar MD at 16:31 EDT Tel , Service support , - Medical Decision Making Patient was sent for hip and pelvis x-rays however they were unremarkable. Therefore given the possibility of a femoral neck fracture, she will require an MRI to rule out an occult fracture. Since she is prior in the emergency department during business hours an MRI is available, I called them and they actually had an opening where they could fit her in so we were able to obtain a stat MRI of the hip without contrast, she had an MRI safely just over a year ago and has had no surgeries since then so she passed the questionnaire. MRI was obtained after several doses of morphine and shows no fracture but there is acute avulsion of the origin for all 3 hamstring muscles from the ischium with a 1 cm fluid-filled gap and surrounding fluid extending into the hamstring musculature itself. This would explain her pain. I discussed with Dr. Booth who advised following up in the next couple days so that she can be further evaluated. He said there is a possibility that she may be managed surgically but she will need further evaluation first. Patient actually prefers this and does not want to be admitted right now. She was given a prescription for some Percocet and crutches, she can be weightbearing as tolerated but given that it will likely create a lot of pain, she was advised to try to avoid weightbearing as much as she is able. ED Disposition - Plan for ED Patient: Disposition: Home or Assisted Living Diagnosis: Avulsion of left hamstring muscle Prescriptions: Oxycodone HCl/Acetaminophen [Percocet 5/325] 1 tablet PO Q4H PRN 3 Days #18 tablet PRN Reason: pain Transmission Status: Received by [address] Referrals: Damian Booth MD [STAFF PHYSICIAN] - (call for appt to be seen in the next 1-2 days) Additional Instructions: Your MRI shows that you ruptured the tendon where your hamstring muscles attached to your pelvic bone within the area of your left buttock. Sometimes this needs to be surgically reattached. In the meantime it will hurt if you try to walk on it. Use the crutches and try to avoid bearing weight on your left lower extremity as much as possible, if you do bear weight on your left leg it will not likely do more damage but it may be painful and cause you to fall. Take the pain medication as needed. When you are resting, ice the affected area as this may help the swelling and therefore help your pain. Heat is unlikely to help right now. Take care walking with crutches and try not to fall. Follow-up with orthopedics for reevaluation.
[2019-12-03] MEDS: Morphine 4 MG/ML Syringe IV ×2 (14:10→15:00)
--- NOTE | 2019-12-03 14:25 | RAD_ITS ---
STUDY: X-RAY - PELVIS AND LEFT HIP REASON FOR EXAM: Female, 44 years old. Fell yesterday, pain posterior TECHNIQUE: 3 views of the pelvis and hip. COMPARISON: None. FINDINGS: There is a non-specific bowel gas pattern. There are multiple calcified phleboliths. Normal bilateral iliac wings, sacroiliac joints and visualized sacrum. Normal bilateral superior and inferior pubic rami. Normal pubic symphysis. Normal bilateral ischial tuberosities. Normal visualized femoral head. Normal acetabulum. Normal hip joint. RAD/HIP, UNI W/ Pelvis 2-3 Views IMPRESSION: Normal x-ray examination of the pelvis and hip. Electronically Signed: Benjamin Uribe, at 14:55 EDT , Service support ,
--- NOTE | 2019-12-03 14:52 | MRI_ITS ---
STUDY: MRI LEFT HIP REASON FOR EXAM: Female, 44 years old. LEFT HIP INJURY, FALL YESTERDAY, UNABLE TO BEAR WT TECHNIQUE: Standardized fat and water weighted pulse sequences were obtained in all 3 orthogonal planes. COMPARISON: None. FINDINGS: Normal hip joint without articular joint space narrowing. Normal acetabulum. Normal labrum. Normal femoral head. Normal femoral neck and intratrochanteric region. Small joint effusion. Mild gluteal tendinosis and peritendinitis. There is no trochanteric, iliopsoas or iliopectineal bursitis. Normal superior and inferior pubic rami. Normal pubic symphysis. Normal ischial tuberosity. Acute avulsion of the origin hamstring tendons (semimembranosus, semitendinosus, biceps femoris (from the ischium with a full-thickness tear with a 1 cm fluid-filled gap and surrounding fluid as well as fluid extending into the hamstring musculature. Normal visualized iliac wing, sacroiliac joint, and sacral ala. Normal visualized soft tissue structures of the pelvis. MRI/Lower Ext Joint Only (Routine) IMPRESSION: Acute avulsion of the hamstring origins from the ischium. Electronically Signed: Damon Gaspar MD at 16:31 EDT Tel , Service support ,
== END 2019-12-03 17:28 | disposition home or self-care (01) ==
PROVIDERS: Emergency Provider Emergency Medicine
DX: S76.392A Other specified injury of muscle, fascia and tendon of the posterior muscle group at thigh level, left thigh, initial encounter (principal); W01.0XXA Fall on same level from slipping, tripping and stumbling without subsequent striking against object, initial encounter; Y93.01 Activity, walking, marching and hiking; Y92.009 Unspecified place in unspecified non-institutional (private) residence as the place of occurrence of the external cause; I10 Essential (primary) hypertension; F17.200 Nicotine dependence, unspecified, uncomplicated; E66.9 Obesity, unspecified; Z68.38 Body mass index [BMI] 38.0-38.9, adult
CPT/HCPCS: 73502; 73721; 96374; 96376; 99284; A4216

== ENCOUNTER 2019-12-17 13:36 | Emergency (ER) | payer MEDICAID, SELFPAY ==
[2019-12-17 13:37] VITALS: BP 154/106; PULSE 88; RESP 16; TEMP 36.6; O2SAT 97; BMI 45.8
--- NOTE | 2019-12-17 13:56 | RAD_ITS ---
STUDY: X-RAY - LUMBAR SPINE REASON FOR EXAM: Female, 44 years old. MECHANICAL FALL AT HOME. LEFT HIP PAIN. TECHNIQUE: 3 view(s) of the lumbar spine were obtained. COMPARISON: October 31, 2018 lumbar spine x-ray FINDINGS: Normal lumbar lordosis. There is no substantial scoliosis. There is a persistent grade 2 anterolisthesis at the level of L5-S1. There is multilevel spondylosis. There is disc space narrowing at the level of L4-L5 and L5-S1. The soft tissue structures are unremarkable. RAD/Lumbar Spine 2 or 3 Views IMPRESSION: Chronic anterolisthesis L5-S1, Neural foramina narrowing probable central stenosis. Degenerative change. No visualized acute fracture. Electronically Signed: Yana Ponce MD at 15:14 EDT Tel , Service support ,
--- NOTE | 2019-12-17 13:56 | RAD_ITS ---
STUDY: X-RAY - PELVIS AND LEFT HIP REASON FOR EXAM: Female, 44 years old. fall, pain TECHNIQUE: 3 views of the pelvis and hip. COMPARISON: None. FINDINGS: There is a normal bowel gas pattern. Normal visualized soft tissue structures. Normal bilateral iliac wings, sacroiliac joints and visualized sacrum. Normal bilateral superior and inferior pubic rami. Mild spurring at the pubic symphysis. Normal bilateral ischial tuberosities. Normal visualized femoral head. Normal acetabulum. Normal hip joint. There is no acute fracture. RAD/HIP, UNI W/ Pelvis 2-3 Views IMPRESSION: No acute fracture seen. Electronically Signed: Loc Phipps MD at 16:13 EDT , Service support ,
--- NOTE | 2019-12-17 14:00 | ED.DCSUM_ITS ---
History of Present Illness Chief Complaint: Lower Extremity Injury Informant: Patient Onset: Today Current Severity: Severe Maximum Severity: Severe Narrative: Patient presents with worsened left hip pain after another fall. Patient was seen here on the of this month after a fall. X-ray was unremarkable, however due to inability to ambulate MRI was pursued. She has an avulsion of the hamstring origin at the issue him. Patient was placed on Percocet and crutches. She states has been out of Percocet for the past week. She is still using her crutches. She did follow-up with Dr. Booth as an outpatient. He is referring her to [facility] for follow-up and has an appointment to be seen in a week. Patient states she was standing at her kitchen sink today when she thinks the rug slipped on the floor and she fell on her left hip again. She did take Tylenol prior to arrival. - Past Medical History (1) Back pain Status: Chronic (2) Sciatica Status: Chronic (3) Hiatal hernia Status: Chronic (4) Hypertension Status: Chronic Past Medical History - Allergies and Home Meds Allergies/Adverse Reactions: Allergies gabapentin Allergy (Verified 12/17/19 13:38) Other lisinopril Allergy (Verified 12/17/19 13:38) Angioedema meperidine HCl [From Demerol] Allergy (Verified 12/17/19 13:38) Swelling pregabalin [From Lyrica] Allergy (Verified 12/17/19 13:38) Other promethazine HCl [From Phenergan] Allergy (Verified 12/17/19 13:38) Swelling tramadol HCl [From Ultram] Allergy (Verified 12/17/19 13:38) Hives Primary Care Physician: Care Physician,No Primary [Primary Care Provider] - Prior records reviewed: Yes Smoking Status: Current every day smoker Review of Systems General: Denies: Chills, Fever Eyes: Denies: Visual changes - bilaterally ENT: Denies: Bilateral ear pain Cardiovascular: Denies: Chest pain Respiratory: Denies: Dyspnea, Cough Gastrointestinal: Denies: Abdominal pain, Nausea, Vomiting, Diarrhea Genitourinary: Denies: Dysuria Musculoskeletal: Reports: Back pain, Extremity Pain Neurological: Denies: Headache Hematologic: Denies: Easy bruising, Easy bleeding Allergy: Denies: Uticaria Physical Exam Vital Signs/Narrative: Vital Signs Temp Pulse Resp BP Pulse Ox 12/17/19 13:37 98 F 88 16 154/106 H 97 Inital Vital Signs reviewed: Yes General: Well nourished, Well developed Head: Normocephalic ENT: Moist mucous membranes Cardiovascular: Regular rate, Regular rhythm Respiratory: No distress, CTA bilaterally Abdomen: Soft, Nontender Back: - - Patient has reproducible tenderness in the left low lumbar paraspinal muscles and over the sciatic notch. Extremities: Nontender, Tenderness - Mild tenderness over the greater trochanter the left hip. Skin: Normal color, No rash Neurological: Alert, Oriented x3, - - Decreased range of motion secondary to pain. Strong distal pulses are noted with normal sensation. Psychological: Normal affect Diagnostic/Tx/Re-eval Impressions Lumbar Spine X-Ray 12/17/19 13:56 IMPRESSION: Chronic anterolisthesis L5-S1, Neural foramina narrowing probable central stenosis. Degenerative change. No visualized acute fracture. Electronically Signed: Yana Ponce MD at 15:14 EDT Tel , Service support , 12/17/19 13:56 HIP, UNI W/ Pelvis 2-3 Views [RAD] Stat Lumbar Spine 2 or 3 Views [RAD] Stat Pelvis and left hip x-rays per my review reveal no evidence of acute fracture. Unchanged when compared to prior study. - Medical Decision Making Patient was given Dilaudid IM for pain control. On repeat evaluation she is resting more comfortably. X-ray results are discussed with her. She has follow-up appointment with orthopedics in [place] next week. She be given a prescription for Percocet and will continue to use her crutches. She is comfortable with this plan. ED Disposition - Plan for ED Patient: Disposition: Home or Assisted Living Diagnosis: Contusion, hip, Fall Instructions: ED Mechanical Fall, ED CONTUSION Hip Prescriptions: Oxycodone HCl/Acetaminophen [Percocet 5/325] 1 tablet PO Q6H PRN PRN 3 Days #12 tablet PRN Reason: Pain Transmission Status: Received by [place] [id number] [address] [facility] Additional Instructions: Follow-up with orthopedics in [place] next week as scheduled.
[2019-12-17] MEDS: HYDROmorphone 1 MG/ML Syringe 2 MG IM (14:18)
[2019-12-17 16:11] VITALS: RESP 18
== END 2019-12-17 16:12 | disposition home or self-care (01) ==
PROVIDERS: Emergency Provider Emergency Medicine
DX: S70.02XA Contusion of left hip, initial encounter (principal); W01.0XXA Fall on same level from slipping, tripping and stumbling without subsequent striking against object, initial encounter; Y93.89 Activity, other specified; Y92.000 Kitchen of unspecified non-institutional (private) residence as the place of occurrence of the external cause; I10 Essential (primary) hypertension; F17.200 Nicotine dependence, unspecified, uncomplicated
CPT/HCPCS: 72100; 73502; 96372; 99282